=== PATIENT | female | born 1995 | race Hispanic/Latino ===

== ENCOUNTER 2022-03-28 13:05 | Observation (INO) | payer OTHER, SELFPAY ==
--- NOTE | 2022-03-28 16:03 | DI.US.S_ITS ---
PROCEDURE: US OB BIOPHYSICAL PROFILE INDICATIONS: 32 week fall OUTSIDE/PRIOR DATING DATA: TECHNIQUE: Real-time scanning was performed of the fetus, with image documentation and biometric measurements. Biophysical profile was also obtained. Endovaginal scanning: Not performed COMPARISON: None. FINDINGS: General: A single living intrauterine gestation is present. Presentation: Breech. Placenta: Placental position is anterior , without previa. There is a hypoechoic 4.0 x 4.0 x 2.0 region deep to the margins of the placenta in the region of pain described by the patient. Amniotic fluid index: 10.3 cm, normal range is 5-24 cm. Single deepest vertical pocket is 3.8 cm. heart rate: 133 beats per minute. Maternal cervical canal: 4.1 cm long. Normal lower limit is 2.5 cm. Biophysical profile: Tone: 2 points. Movement: 2 points. Respiration: 2 points. Largest pocket of fluid: 2 points. IMPRESSION: 1. Single live intrauterine gestation in breech position. 2. Hypoechoic fluid collection posterior to the margins of the placenta in the region of pain described by the patient. Differential considerations include focal region of placental abruption versus venous bauer. Close clinical and sonographic surveillance recommended. We strive to produce accurate, complete, and clear reports of imaging services. To assist us in improving patient care, this report was composed using standard report templates and voice recognition software. Therefore, it may contain abnormal punctuation, insertions and/or omissions. Occasional wrong-word or sound-alike substitutions may occur. Though we review the report and make efforts to correct it, we do recommend that the report be read carefully in proper context to recognize any text inaccuracies. Dictated by: Trisha Olmstead M.D. on 03/28/2022 at 16:49 Approved by: Trisha Olmstead M.D. on 03/28/2022 at 16:53
--- NOTE | 2022-03-28 16:58 | PM.OBTRLD ---
Visit Information Visit Information Date of evaluation: 03/28/22 Primary OB Provider: [facility] [place], [place] On-call OB Provider: Noah Sykes Reason for Evaluation: Yes other Comments/Additional reasons for admission: 26 yo JAZLYN 05/21/2022 followed at [facility] [place], presents to ED @ 32 weeks EGA w/ 1 month history of LUQ pain which seems to be steadily worsening. Transferred to [facility] for evaluation. Localized, non-radiating pain which feels like a bruise, constant. aggravated by certain movements during workouts, exquisitely sensitive when touched. No bleeding, no contractions, normal FM. Feel onto her knees recently at work recently and although she didn't impact her abdomen, the pain has worsened since. Seen at [facility] Triage 03/27/2022 with normal/negative findings and plans for close follow-up. Breech on most recent US. Non-smoker, no drug use, no HTN, no abdominal trauma, no COVID. Patient did not have any pain like this with her first and she is understandably concerned BT A+. Exam Const General: cooperative, healthy appearing and anxious Nutritional Appearance: average body habitus [facility] Head: normal to inspection, normocephalic and atraumatic Face and sinus: face symmetric Eyes General: appearance normal, both eyes and all related structures EOM: EOM intact bilaterally Neck Neck: normal visual inspection Resp Effort & Inspection: normal respiratory effort and able to speak in complete sentences GI Inspection: normal to inspection Palpation: soft, no hepatosplenomegaly, mass (Firm 33 cm FH, right side fundus more prominent) and tender (localized @ left cornua, duplicates pain ) Uterus Location (Fundal Height): 33 Extrem Right lower extremity: normal to inspection Objective Imaging OB U/S: Radiologist's impression: FINDINGS:? ? General:? A single living intrauterine gestation is present.? Presentation:? Breech.? Placenta:? Placental position is anterior , without previa.? There is a hypoechoic 4.0 x 4.0 x 2.0 region deep to the margins of the placenta in the region of pain described by the patient. Amniotic fluid index:? 10.3 cm, normal range is 5-24 cm.? Single deepest vertical pocket is 3.8 cm. heart rate:? 133 beats per minute.? Maternal cervical canal:? 4.1 cm long.? Normal lower limit is 2.5 cm.? ? Biophysical profile:? Tone:? 2 points. Movement:? 2 points.? Respiration:? 2 points.? Largest pocket of fluid:? 2 points.? ? ? IMPRESSION:? ? 1. Single live intrauterine gestation in breech position. ? 2. Hypoechoic fluid collection posterior to the margins of the placenta in the region of pain described by the patient.? Differential considerations include focal region of placental abruption versus venous bauer.? Close clinical and sonographic surveillance recommended.? Evaluation Evaluation Baseline heart rate: 13 Variability: Moderate (11-25) monitor accelerations: Present Monitor Decelerations: Absent Category of Tracing: Reactive Status: Category l Diagnosis, Plan/Disposition Final Diagnosis (1) : Status: Acute (2) Uterine pain: Status: Acute Plan/Disposition Plan: The patient's pain is localized, described consistently, and seems to be increasing in intensity. It's unclear whether or not the pain is being caused by the marginal placental abnormality noted on US but those findings are certainly concerning for a possible chronic marginal abruption. NST and BPP are reassuring insofar as current wellbeing but the US findings which closely correlate with patient's clinical symptoms therefore close Usurveillance of placental integrity is essentil going forward. Discussed case with Dr. Santosh DU and agrees close observation is essential. He will notify [facility] triage nurses who will contact the patient tomorrow and arrange close follow-up. Preacautionary symptoms reviewed including immediate presentation to nearest w/ onset of severe uterine pain and/or vaginal bleeding. Patient placed at no-work status until cleared by MANOLO DU. Patient's [facility] records to be forwarded to MANOLO DU. [place]
== END 2022-03-28 17:30 | disposition home or self-care (01) ==
PROVIDERS: Admitting Provider Obstetrics & Gynecology; Referring Provider Obstetrics & Gynecology; Visit Provider Obstetrics & Gynecology
DX: O26.893 Other specified pregnancy related conditions, third trimester (principal); R10.12 Left upper quadrant pain; Z3A.32 32 weeks gestation of pregnancy
CPT/HCPCS: 59025; 59050; 76815; 76819; G0378; G0379

== ENCOUNTER 2022-08-20 13:34 | Emergency (ER) | payer OTHER, SELFPAY ==
[2022-08-20 13:52] VITALS: BP 111/61; PULSE 55; RESP 16; TEMP 36.6; O2SAT 100
== END 2022-08-20 16:04 | disposition left against medical advice (07) ==
PROVIDERS: Emergency Provider Emergency Medicine
CPT/HCPCS: 99281

== ENCOUNTER 2022-08-21 13:02 | Emergency (ER) | payer OTHER, SELFPAY ==
[2022-08-21 13:16] VITALS: BP 109/59; PULSE 67; RESP 16; TEMP 36.7; O2SAT 100
[2022-08-21 14:34] LABS: Add Manual Diff / Slide Review NO; Basophils Absolute Auto 0 /uL (0-100); Basophils Percent Auto 0.4 % (0-2); Eosinophils Absolute Auto 100 /uL (0-450); Eosinophils Percent Auto 1.5 % (2-4); Hematocrit 34.5 % (36-46); Hemoglobin 11.5 g/dL (12.0-16.0); Lymphocytes Absolute Auto 2000 /uL (1100-4500); Lymphocytes Percent Auto 26.8 % (25-40); Mean Corpuscular HGB Conc 33.3 % (30-36); Mean Corpuscular Hemoglobin 25.9 PG (26-34); Mean Corpuscular Volume 77.7 fL (80-100); Monocytes Absolute Auto 500 /uL (0-900); Monocytes Percent Auto 6.5 % (3-14); Neutrophils Absolute Auto 4800 /uL (1500-7000); Neutrophils Percent Auto 64.8 % (50-75); Platelet Count 355 X10^3/uL (150-400); Red Blood Cell Count 4.44 X10^6/uL (4.0-5.2); Red Cell Distribution Width 14.7 % (11.6-14.8); White Blood Cell Count 7.5 X10^3/uL (4.5-11.0)
[2022-08-21 14:44] LABS: Alanine Aminotransferase 24 IU/L (<35); Albumin 4.3 g/dL (3.5-5.0); Albumin Globulin Ratio 1.3 (1.0-2.8); Alkaline Phosphatase 55 U/L (38-126); Aspartate Aminotransferase 35 IU/L (14-36); BUN Creatinine Ratio 16.7 (6-22); Bilirubin Total 0.6 mg/dL (0.2-1.3); Blood Urea Nitrogen 11 mg/dL (7-17); Calcium 8.9 mg/dL (8.4-10.2); Carbon Dioxide 23 mmol/L (22-32); Chloride 106 mmol/L (98-107); Estimated Glomerular Filt Rate > 60 mL/min (>60); Globulin 3.2 g/dL (1.7-4.1); Glucose 83 mg/dL (70-100); HEMOLYSIS < 15 (0-50); Lipase 74 U/L (23-300); Potassium 3.7 mmol/L (3.4-5.1); Sodium 140 mmol/L (137-145); Total Protein 7.5 g/dL (6.3-8.2)
[2022-08-21 15:06] VITALS: BP 99/56; PULSE 63; O2SAT 95
[2022-08-21 17:09] VITALS: O2SAT 99
[2022-08-21 17:10] VITALS: BP 110/55; PULSE 56; TEMP 36.5; O2SAT 100
--- NOTE | 2022-08-21 18:13 | DI.US.S_ITS ---
PROCEDURE: US PELVIC COMPLETE INDICATIONS: Pelvic pain TECHNIQUE: Real-time scanning was performed of the pelvic organs, with image documentation. Additional endovaginal scanning was necessary due to incomplete visualization of the adnexal and endometrial structures by transabdominal scanning. COMPARISON: None. FINDINGS: Uterus: Uterus is anteverted and measures 9.0 x 3.7 x 5.2 cm. Endometrium measures up to 0.4 cm in thickness. No endometrial fluid or mass identified. No definite increased internal vascularity within the endometrium on color Doppler interrogation. Ovaries: The right ovary measures 2.9 x 3.1 x 3.3 cm, with a calculated ovarian volume of 15.2 cc. The left ovary measures 1.1 x 2.4 x 1.2 cm, with a calculated ovarian volume of 1.6 cc. The ovaries have a normal sonographic appearance. Less than 12 follicles can be seen in each ovary. No adnexal masses. There is a predominantly anechoic right ovarian cyst measuring up to 2.6 x 2.3 x 2.3 cm. No internal vascularity on color Doppler interrogation. There is patent arterial flow within the ovaries. Other: No pathologic free abdominal or pelvic fluid. IMPRESSION: 1. No definite acute sonographic abnormality in the pelvis. 2. Right ovarian cyst likely represents a follicular cyst. 3. No definite evidence of retained products of conception. We strive to produce accurate, complete, and clear reports of imaging services. To assist us in improving patient care, this report was composed using standard report templates and voice recognition software. Therefore, it may contain abnormal punctuation, insertions and/or omissions. Occasional wrong-word or sound-alike substitutions may occur. Though we review the report and make efforts to correct it, we do recommend that the report be read carefully in proper context to recognize any text inaccuracies. Dictated by: Daren Ruiz M.D. on 08/21/2022 at 20:24 Approved by: Daren Ruiz M.D. on 08/21/2022 at 20:35
--- NOTE | 2022-08-21 18:16 | ED_ITS ---
HPI - Abdominal Pain <Brien Cho MD - Last Filed: 08/21/22 18:19> General Chief Complaint: Abdominal Pain Stated Complaint: abd pain 3 months ago Time Seen by Provider: 08/21/22 17:50 Mode of arrival: Family Vehicle History of Present Illness HPI narrative: Oralia is a healthy 26-year-old woman who gave via section in the middle of April. Everything went well with the surgery but since surgery she is noticed that she is had quite a bit of spotting and bloody flow. It did stop briefly for a few days but then resumed and he has been present for many weeks now. She has persistent abdominal discomfort and pain. Tylenol and ibuprofen do not give her much relief. She is had some nausea but no vomiting. She has no bowel or urinary tract symptoms at all. No constipation specifically. She is not had any previous abdominal surgeries other than the in April. She tried to talk to her gynecological assistant surgeon but they could not see her until this Saturday and the pain was to the point where she felt uncomfortable waiting until Saturday so she came in today. She has no flank tenderness. No fainting. No pr escription medications. Related Data Allergies Allergy/AdvReac Type Severity Reaction Status Date / Time No Known Drug Allergies Allergy Verified 08/21/22 13:20 Review of Systems <Brien Cho MD - Last Filed: 08/21/22 18:19> Review of Systems Narrative: Complete review of systems is negative other than as noted above. Patient History <Brien Cho MD - Last Filed: 08/21/22 18:19> Social History Smoking Status: Never smoker Smoking Status: Never smoker Substance Use Type: does not use Exam <Brien Cho MD - Last Filed: 08/21/22 18:19> Narrative Exam Narrative: GENERAL: Alert, cooperative and in no distress. HEAD: Atraumatic. Normocephalic. EYES: Sclera are clear without icterus. Extraocular movements are full. ENT: No rhinorrhea NECK: Supple. Full range of motion. CARDIOVASCULAR: Normal rate and rhythm without murmur gallop or rub. RESPIRATORY: Clear to auscultation. Breath sounds equal bilaterally. No wheezes, rales, or rhonchi. GASTROINTESTINAL: Abdomen is soft. There are no peritoneal signs or guarding. She does have diffuse tenderness. The tenderness is probably most notable in the right lower quadrant. But again no guarding or rebound EXTREMITIES: No edema, full range of motion. No obvious trauma. BACK: Normal inspection, no CVA tenderness. NEURO: Nonfocal examination, normal speech. SKIN: No rash or erythema of visible areas PSYCH: Normally oriented. Normal range of affect. Appropriate behavior Initial Vital Signs Initial Vital Signs: Vital Signs Temperature 98.1 F 08/21/22 13:16 Pulse Rate 67 08/21/22 13:16 Respiratory Rate 16 08/21/22 13:16 Blood Pressure 109/59 L 08/21/22 13:16 Pulse Oximetry 100 08/21/22 13:16 Oxygen Delivery Method 08/21/22 13:16 <Jennifer Prieto DO - Last Filed: 08/22/22 02:30> Initial Vital Signs Initial Vital Signs: Vital Signs Temperature 98.1 F 08/21/22 13:16 Pulse Rate 67 08/21/22 13:16 Respiratory Rate 16 08/21/22 13:16 Blood Pressure 109/59 L 08/21/22 13:16 Pulse Oximetry 100 08/21/22 13:16 Oxygen Delivery Method 08/21/22 13:16 Course <Brien Cho MD - Last Filed: 08/21/22 18:19> Orders Ordered: ED Orders 08/21/22 17:32 EKG-12 Lead Stat 08/21/22 18:13 US pelvic complete Stat Vital Signs Vital signs: Vital Signs - 8 hr 08/21/22 20:56 Pulse Rate 86 Respiratory Rate 16 Blood Pressure 126/84 Pulse Oximetry 98 Oxygen Delivery Method Room Air <Jennifer Prieto DO - Last Filed: 08/22/22 02:30> Orders Ordered: ED Orders 08/21/22 17:32 EKG-12 Lead Stat 08/21/22 18:13 US pelvic complete Stat Vital Signs Vital signs: Vital Signs - 8 hr 08/21/22 20:56 Pulse Rate 86 Respiratory Rate 16 Blood Pressure 126/84 Pulse Oximetry 98 Oxygen Delivery Method Room Air MDM - Abdominal Pain <Brien Cho MD - Last Filed: 08/21/22 18:19> Lab Data Result diagrams: 08/21/22 14:21 08/21/22 14:21 Labs: Lab Results 08/21/22 08/21/22 Range/Units 14:21 14:21 WBC 7.5 (4.5-11.0) X10^3/uL RBC 4.44 (4.0-5.2) X10^6/uL Hgb 11.5 L (12.0-16.0) g/dL Hct 34.5 L (36-46) % MCV 77.7 L (80-100) fL MCH 25.9 L (26-34) PG MCHC 33.3 (30-36) % RDW 14.7 (11.6-14.8) % Plt Count 355 (150-400) X10^3/uL Neut % (Auto) 64.8 (50-75) % Lymph % (Auto) 26.8 (25-40) % [place] % (Auto) 6.5 (3-14) % Eos % (Auto) 1.5 L (2-4) % Baso % (Auto) 0.4 (0-2) % Neut # (Auto) 4800 (1104-6259) /uL Lymph # (Auto) 2000 (0424-2751) /uL [place] # (Auto) 500 (0-900) /uL Eos # (Auto) 100 (0-450) /uL Baso # (Auto) 0 (0-100) /uL Sodium 140 (137-145) mmol/L Potassium 3.7 (3.4-5.1) mmol/L Chloride 106 (98-107) mmol/L Carbon Dioxide 23 (22-32) mmol/L BUN 11 (7-17) mg/dL Creatinine 0.66 (0.52-1.04) mg/dL Estimated GFR > 60 (>60) mL/min BUN/Creatinine Ratio 16.7 (6-22) Glucose 83 (70-100) mg/dL Calcium 8.9 (8.4-10.2) mg/dL Total Bilirubin 0.6 (0.2-1.3) mg/dL AST 35 (14-36) IU/L ALT 24 (<35) IU/L Alkaline Phosphatase 55 (38-126) U/L Total Protein 7.5 (6.3-8.2) g/dL Albumin 4.3 (3.5-5.0) g/dL Globulin 3.2 (1.7-4.1) g/dL Albumin/Globulin Ratio 1.3 (1.0-2.8) Lipase 74 (23-300) U/L Point of care testing: Point of Care Testing Test Results Negative Urine Dip Bedside Urine Glucose Negative Bedside Urine Bilirubin - Negative Bedside Urine Ketone - Negative Urine Specific [place] 1.010 Bedside Urine Occult Blood - Negative Bedside Urine pH 7.0 Bedside Urine Protein - Negative Bedside Urine Urobilinogen - Negative Bedside Urine Nitrite - Negative Bedside Urine Leukocytes - Negative Esterase MDM Narrative Medical decision making narrative: No guarding or rebound. I do not suspect peritonitis. It seems like a long time since her for her to have a complication but to be thorough will get pelvic ultrasound to confirm. Laboratory data is entirely reassuring. I recommend follow-up with her gynecologic surgeon later in the week assuming that her workup here is completely reassuring with ultrasound. <Jennifer Prieto, - Last Filed: 08/22/22 02:30> Lab Data Labs: Lab Results 08/21/22 08/21/22 Range/Units 14:21 14:21 WBC 7.5 (4.5-11.0) X10^3/uL RBC 4.44 (4.0-5.2) X10^6/uL Hgb 11.5 L (12.0-16.0) g/dL Hct 34.5 L (36-46) % MCV 77.7 L (80-100) fL MCH 25.9 L (26-34) PG MCHC 33.3 (30-36) % RDW 14.7 (11.6-14.8) % Plt Count 355 (150-400) X10^3/uL Neut % (Auto) 64.8 (50-75) % Lymph % (Auto) 26.8 (25-40) % [place] % (Auto) 6.5 (3-14) % Eos % (Auto) 1.5 L (2-4) % Baso % (Auto) 0.4 (0-2) % Neut # (Auto) 4800 (6100-1008) /uL Lymph # (Auto) 2000 (3407-5164) /uL [place] # (Auto) 500 (0-900) /uL Eos # (Auto) 100 (0-450) /uL Baso # (Auto) 0 (0-100) /uL Sodium 140 (137-145) mmol/L Potassium 3.7 (3.4-5.1) mmol/L Chloride 106 (98-107) mmol/L Carbon Dioxide 23 (22-32) mmol/L BUN 11 (7-17) mg/dL Creatinine 0.66 (0.52-1.04) mg/dL Estimated GFR > 60 (>60) mL/min BUN/Creatinine Ratio 16.7 (6-22) Glucose 83 (70-100) mg/dL Calcium 8.9 (8.4-10.2) mg/dL Total Bilirubin 0.6 (0.2-1.3) mg/dL AST 35 (14-36) IU/L ALT 24 (<35) IU/L Alkaline Phosphatase 55 (38-126) U/L Total Protein 7.5 (6.3-8.2) g/dL Albumin 4.3 (3.5-5.0) g/dL Globulin 3.2 (1.7-4.1) g/dL Albumin/Globulin Ratio 1.3 (1.0-2.8) Lipase 74 (23-300) U/L Point of care testing: Point of Care Testing Test Results Negative Urine Dip Bedside Urine Glucose Negative Bedside Urine Bilirubin - Negative Bedside Urine Ketone - Negative Urine Specific [place] 1.010 Bedside Urine Occult Blood - Negative Bedside Urine pH 7.0 Bedside Urine Protein - Negative Bedside Urine Urobilinogen - Negative Bedside Urine Nitrite - Negative Bedside Urine Leukocytes - Negative Esterase Imaging Data US - MAINTENANCE EQUIPMENT OPERATOR: Radiologist's Impression: Signed Patient: Pastora Sanchez MR#: [id number] : 1995 Acct:[id number] Age/Sex: 26 / F Date of Service: 08/21/22 Loc: ED Accession Number: [id number] ?? Procedure: US pelvic complete Ordering Provider: Brien Cho MD PROCEDURE:? US PELVIC COMPLETE ? INDICATIONS:? Pelvic pain ? TECHNIQUE:? Real-time scanning was performed of the pelvic organs, with image documentation.? Additional endovaginal scanning was necessary due to incomplete visualization of the adnexal and endometrial structures by transabdominal scanning.? ? COMPARISON:? None. ? FINDINGS:? ?? Uterus:? Uterus is anteverted and measures 9.0 x 3.7 x 5.2 cm.? Endometrium measures up to 0.4 cm in thickness.? No endometrial fluid or mass identified.? No definite increased internal vascularity within the endometrium on color Doppler interrogation.? ? Ovaries:? The right ovary measures 2.9 x 3.1 x 3.3 cm, with a calculated ovarian volume of 15.2 cc. The left ovary measures 1.1 x 2.4 x 1.2 cm, with a calculated ovarian volume of 1.6 cc. The ovaries have a normal sonographic appearance. Less than 12 follicles can be seen in each ovary.? No adnexal masses.? There is a predominantly anechoic right ovarian cyst measuring up to 2.6 x 2.3 x 2.3 cm.? No internal vascularity on color Doppler interrogation.? There is patent arterial flow within the ovaries.? ? Other:? No pathologic free abdominal or pelvic fluid. ? ? IMPRESSION:? ? 1. No definite acute sonographic abnormality in the pelvis. ? 2.? Right ovarian cyst likely represents a follicular cyst. ? 3. No definite evidence of retained products of conception. ? ? ? We strive to produce accurate, complete, and clear reports of imaging services. To assist us in improving patient care, this report was composed using standard report templates and voice recognition software. Therefore, it may contain abnormal punctuation, insertions and/or omissions. Occasional wrong-word or sound-alike substitutions may occur. Though we review the report and make efforts to correct it, we do r ecommend that the report be read carefully in proper context to recognize any text inaccuracies. ? ? Dictated by: Daren Ruiz M.D. on 08/21/2022 at 20:24 ? ? MDM Narrative Medical decision making narrative: No guarding or rebound. I do not suspect peritonitis. It seems like a long time since her for her to have a complication but to be thorough will get pelvic ultrasound to confirm. Laboratory data is entirely reassuring. I recommend follow-up with her gynecologic surgeon later in the week assuming that her workup here is completely reassuring with ultrasound. Conner: Patient signed out to me by For now. I have seen evaluated patient myself. Blood work is overall reassuring she has some very mild vague abdominal pain abdominal exam is fairly benign mildly tender is all left side. Ultrasound shows a very small right ovarian cyst unlikely to be causing her pain. She may require a CT is however not at this time. She seems to be moving around quite easily abdomen is certainly not acute. His at this time recommend outpatient follow-up and supportive care. Discharge Plan Departure Patient Disposition: Home Clinical Impression: Pelvic pain, Ovarian cyst Instructions: DI for Ovarian Cyst, DI for Abdominal Pain-Adult Activity Restrictions/Additional Instructions: No immediately dangerous cause for her abdominal pain is discovered today. Pelvic ultrasound is reassuring. Laboratory data is reassuring. Her vital signs are normal. I am sorry that your struggling with this difficult ongoing abdominal pain. I recommend that your next step would be to follow up with the gynecologic surgeon to discuss further investigation as indicated. You should return to the ER right away for fainting, high fever, severe pain making it difficult to eat or walk. For pain management recommend Tylenol 1000 mg taken together with ibuprofen 600 mg every 6 hours. Referrals: Miscellaneous,DoctorMD [Primary Care Provider] - Visit Report Forms: Patient Portal/API
[2022-08-21 20:56] VITALS: BP 126/84; PULSE 86; RESP 16; O2SAT 98
== END 2022-08-21 20:56 | disposition home or self-care (01) ==
PROVIDERS: Family Medicine Addiction Medicine; Emergency Provider Emergency Medicine
DX: R10.2 Pelvic and perineal pain (principal); N83.201 Unspecified ovarian cyst, right side
CPT/HCPCS: 36415; 76830; 76856; 80053; 81003; 81025; 83690; 85025; 93005; 93975; 99283; 99284

== ENCOUNTER 2024-07-30 12:34 | Emergency (ER) | payer OTHER, SELFPAY ==
[2024-07-30 12:37] VITALS: BP 106/59; PULSE 74; RESP 16; TEMP 36.8; O2SAT 99; BMI 24.7
--- NOTE | 2024-07-30 13:30 | ED.SOB ---
HPI - SOB/Dyspnea <Lin Hill PA-C - Last Filed: 07/30/24 16:40> General Chief Complaint: Shortness of Breath/Dyspnea Stated Complaint: SOB, chest px, fatigue Time Seen by Provider: 07/30/24 13:30 Source: patient Mode of arrival: Ambulatory History of Present Illness HPI Narrative: Patient is a pleasant 28-year-old female that presents to the emergency room department today with a sensation of chest pressure, unable to catch her breath, unable to take a deep breath, that has been ongoing for the last several days. However it has been episodic in nature until today where the sensation that she can not quite take a deep breath and can not quite express all of her breath has lasted throughout the day. Patient denies recent travel, recent antibiotics, no recent sick contacts. She has not been on an airplane, she also complains of some night sweats. No history of TB, healthy female no major medical problems except anxiety but she states this does not feel like her anxiety. Patient recently had an episode of syncope at the airport, followed up with her primary care doctor and was told that she had a vasovagal event and was not preferred to anyone be evaluated for the syncope. Currently at this time the patient states she just feels like she just can not quite get a deep breath. And she has discomfort and pain in her chest. No other physical complaints currently at this time. Related Data Allergies Allergy/AdvReac Type Severity Reaction Status Date / Time No Known Drug Allergies Allergy Verified 08/21/22 13:20 Review of Systems <Lin Hill PA-C - Last Filed: 07/30/24 16:40> Review of Systems Narrative: Negative except as above Cardiovascular Comments: Chest pain chest pressure. Respiratory Comments: Patient states she is unable to get a full breath, and get a full breath in and out. Musculoskeletal Comments: Patient states that she has chest pain, chest pressure. Patient History <Lin Hill PA-C - Last Filed: 07/30/24 16:40> Social History Smoking Status: Current every day smoker Smoking Status: Current every day smoker tobacco type: vaping Substance Use Type: does not use Exam <Lin Hill PA-C - Last Filed: 07/30/24 16:40> Initial Vital Signs Initial Vital Signs: Vital Signs Temperature 98.3 F 07/30/24 12:37 Pulse Rate 74 07/30/24 12:37 Respiratory Rate 16 07/30/24 12:37 Blood Pressure 106/59 L 07/30/24 12:37 Pulse Oximetry 99 07/30/24 12:37 Oxygen Delivery Method Room Air 07/30/24 12:37 Reviewed. The patient has no tachycardia, no tachypnea, she has not hypotensive, she has not tachycardic, she has not hypoxic. Const General: cooperative, healthy appearing, comfortable, well developed, well groomed, No acute distress, No in distress, No anxious, No combative, No diaphoretic, No disheveled, No frail appearing, No ill appearing, No intoxicated appearing, No lethargic and well hydrated Nutritional Appearance: average body habitus, well nourished and thin Limitations: mental status not altered and no physical limitations HENMT Head: normal to inspection and normocephalic Eyes General: Yes appearance normal, both eyes and all related structures Eyelids: eyelids normal Pupils: PERRL EOM: EOM intact bilaterally Chest Other: Patient is in out of chest movement is normal. She does not appear to be struggling. There is no use of accessory muscles. Resp Effort & Inspection: normal respiratory effort, able to speak in complete sentences, normal respiratory pattern, no audible wheezes, no cough, respiratory effort not decreased, no grunting, not labored, no nasal flaring, no pursed lip breathing, no respiratory distress, no retractions, no segmental paradox chest wall movement, no stridor, no tripod positioning, no use of accessory muscles, No prolonged expiratory phase and symmetric chest movement Auscultation: clear to auscultation bilaterally, breath sounds present, no bronchial breath sounds, no bronchovesicular breath sounds, no crackles, lung sounds not diminished, no rales, no rhonchi, no wheezes, no rubs and no vesicular sounds Tactile Fremitus: tactile fremitus absent Cardio Rate: bradycardic Rhythm: regular rhythm Heart Sounds: S1 normal, S2 normal, no click, no gallops, no murmurs and no rubs Pulses: radial pulses present and normal peripheral pulses Skin General: dry skin and warm Neuro General: patient alert, patient awake, patient oriented x3, oriented and gait normal Cranial Nerves: CN's II-XI intact bilaterally, PERRL and hearing normal Cognition: normal cognition Speech: speech normal Gait: normal gait Extrem Other: Range of motion, strength, pulses, cap refill preserved in the upper and lower extremities. Psych Other: Patient's appearance, mental status, speech, movement, mood, affect, attitude, thought process, thought content, judgment are all within normal limits. Patient is wondering if this could be her anxiety. I have tried to explain to her that currently anxiety is different for every person. That is why anxiety, psych issues, mental health is difficult to treat because no to people other exactly the same, no treatment plan is the same people do not present the same we have not talked about any mental health issues here in the emergency room department. If she would like to talk about mental health issues I am more than willing to listen currently however she has not discuss with me that she would like to talk about any mental health issues. <Jabier Duque MD - Last Filed: 07/30/24 22:03> Initial Vital Signs Initial Vital Signs: Vital Signs Temperature 98.3 F 07/30/24 12:37 Pulse Rate 74 07/30/24 12:37 Respiratory Rate 16 07/30/24 12:37 Blood Pressure 106/59 L 07/30/24 12:37 Pulse Oximetry 99 07/30/24 12:37 Oxygen Delivery Method Room Air 07/30/24 12:37 Scores <Lin Hill PA-C - Last Filed: 07/30/24 16:40> GCS Citation: 15 Course <Lin Hill PA-C - Last Filed: 07/30/24 16:40> Orders Ordered: ED Orders 07/30/24 13:32 XR chest 2V Urgent EKG-12 Lead Urgent 07/30/24 13:55 B12 [Vitamin B12] Routine CBC Auto Diff [Complete Blood Count AUTO DIFF] Urgent CMP [Comprehensive Metabolic Panel] Urgent Folate Stat Hemoglobin A1C% w Est Avg Glu Stat Iron Stat Troponin & CK Cardiac Panel Urgent Vitamin D 25 Hydroxy (D3) Stat Discontinued Medications Albuterol/Ipratropium (Albuterol/Ipratropium 3 Ml Ampul) 3 ml INH NOW ONE Stop: 07/30/24 15:34 Last Admin: 07/30/24 15:41 Dose: 3 ml Documented By: KATJA Reevaluation(s) Reevaluation #1: Patient had a breathing treatment, she did not get any improvement from the breathing treatment. Vital Signs Vital signs: Vital Signs - 8 hr 07/30/24 15:45 07/30/24 16:27 Pulse Rate 58 L 58 L Respiratory Rate 18 14 Blood Pressure 123/67 Pulse Oximetry 99 100 Oxygen Delivery Method Room Air Room Air Reviewed <Jabier Duque MD - Last Filed: 07/30/24 22:03> Orders Ordered: ED Orders 07/30/24 13:32 XR chest 2V Urgent EKG-12 Lead Urgent 07/30/24 13:55 B12 [Vitamin B12] Routine CBC Auto Diff [Complete Blood Count AUTO DIFF] Urgent CMP [Comprehensive Metabolic Panel] Urgent Folate Stat Hemoglobin A1C% w Est Avg Glu Stat Iron Stat Troponin & CK Cardiac Panel Urgent Vitamin D 25 Hydroxy (D3) Stat Discontinued Medications Albuterol/Ipratropium (Albuterol/Ipratropium 3 Ml Ampul) 3 ml INH NOW ONE Stop: 07/30/24 15:34 Last Admin: 07/30/24 15:41 Dose: 3 ml Documented By: KATJA Vital Signs Vital signs: Vital Signs - 8 hr 07/30/24 15:45 07/30/24 16:27 Pulse Rate 58 L 58 L Respiratory Rate 18 14 Blood Pressure 123/67 Pulse Oximetry 99 100 Oxygen Delivery Method Room Air Room Air MDM - SOB/Dyspnea <Lin Hill PA-C - Last Filed: 07/30/24 16:40> Lab Data 07/30/24 13:55 07/30/24 13:55 Labs: Lab Results 07/30/24 Range/Units 13:55 WBC 6.3 (4.5-11.0) X10^3/uL RBC 4.42 (4.0-5.2) X10^6/uL Hgb 12.2 (12.0-16.0) g/dL Hct 36.8 (36-46) % MCV 83.3 (80-100) fL MCH 27.7 (26-34) PG MCHC 33.3 (30-36) % RDW 13.0 (11.6-14.8) % Plt Count 363 (150-400) X10^3/uL Neut % (Auto) 65.6 (50-75) % Lymph % (Auto) 27.9 (25-40) % [place] % (Auto) 5.0 (3-14) % Eos % (Auto) 1.1 L (2-4) % Baso % (Auto) 0.4 (0-2) % Neut # (Auto) 4100 (2083-3295) /uL Lymph # (Auto) 1700 (5866-1499) /uL [place] # (Auto) 300 (0-900) /uL Eos # (Auto) 100 (0-450) /uL Baso # (Auto) 0 (0-100) /uL Sodium 137 (137-145) mmol/L Potassium 4.0 (3.4-5.1) mmol/L Chloride 106 (98-107) mmol/L Carbon Dioxide 22 (22-32) mmol/L BUN 9 (7-17) mg/dL Creatinine 0.63 (0.52-1.04) mg/dL Estimated GFR > 60 (>60) mL/min BUN/Creatinine Ratio 14.3 (6-22) Glucose 86 (70-100) mg/dL Hemoglobin A1c 4.7 (4.0-6.0) % Calcium 9.4 (8.4-10.2) mg/dL Iron 140 (37-170) ug/dL Total Bilirubin 1.8 H (0.2-1.3) mg/dL AST 20 (14-36) IU/L ALT 12 (<35) IU/L Alkaline Phosphatase 46 (38-126) U/L Total Creatine Kinase 78 (30-135) U/L Troponin I < 0.012 (0.01-0.034) ng/mL Total Protein 7.6 (6.3-8.2) g/dL Albumin 4.7 (3.5-5.0) g/dL Globulin 2.9 (1.7-4.1) g/dL Albumin/Globulin Ratio 1.6 (1.0-2.8) Vitamin B12 723 (239-931) pg/mL 25-OH Vitamin D Total 35.8 (30.0-100.0) ng/mL Folate 12.8 (2.76-20.0) ng/mL Imaging Data Chest x-ray: Radiologist's Impression: [address] [address] XRay Report Signed Patient: Pastora Sanchez MR#: [id number] : 1995 Acct:[id number] Age/Sex: 28 / F Date of Service: 07/30/24 Loc: ED Accession Number: [id number] Procedure: XR chest 2V Ordering Provider: Lin Hill PA-C PROCEDURE: XR CHEST 2V INDICATIONS: Short of breath TECHNIQUE: 2 views of the chest were acquired. COMPARISON: None. FINDINGS: Surgical changes and devices: None. Lungs and pleura: Lungs are clear. No pleural effusions or pneumothorax. Mediastinum: Mediastinal contours are normal. Heart size is normal. Bones and chest wall: No suspicious bony abnormalities. Soft tissues appear unremarkable. IMPRESSION: No acute pulmonary process. Dictated by: Usha Harding M.D. on 07/30/2024 at 14:14 Approved by: Usha Harding M.D. on 07/30/2024 at 14:18 ECG Data Interpretation: Sinus bradycardia Ventricular rate 55 beats per minute WV interval 154 milliseconds QRS interval 84 milliseconds QT/QTC 418/[address] elevation No ST depression No signs of acute infarct Otherwise normal EKG except for sinus bradycardia. MDM Narrative Medical decision making narrative: Patient is a pleasant 28-year-old female brought to the emergency room department today by her . We have complaints of multiple days of episodic sensation of not being able to get enough air in enough air out. However, today the sensation has been ongoing, and has not gone away. She feels as if she is short of breath even at rest, she is having difficulty getting enough air in feeling as if her ribcage is expanding and then feeling as if she is getting enough air out. Chest x-ray negative for any cardiac abnormalities or pulmonary abnormalities. Patient had a breathing treatment she states that the DuoNeb did not make her feel any different did not changes sensation that she currently has. She had a complex laboratory workup here that was negative for any substantial acute findings. Cardiac enzymes were normal CBC was normal patient is not anemic, she does not have an elevated white count. Hemoglobin A1c was normal Vitamin-D normal Vitamin B12 normal Folate normal Iron normal CMP normal except for mild elevated total bili at 1.8 Patient concerned that perhaps it is anxiety which could be however patient has not discuss any issues associated with mental health are talked about mental health issues. My understanding is she had a syncopal episode about a [place] ago at the airport by her primary care doctor stated that they felt it was a vasovagal event due to dehydration she was not referred to be seen or evaluated for the syncopal episode. I suggested that the patient discuss with her primary care doctor about being referred to pulmonary for pulmonary workup if she continues to have issues. The patient is not tachycardic, she has not tachypneic, she has not hypoxic, she does not appear lethargic, she just not appear toxic, she does not appear ill. She has not struggling to breathe. She is speaking in full sentences. She has not using any accessory muscles. Her EKG is not indicative of any heart strain. Low suspicion for pulmonary embolism. She has not currently taking control pills. She does vape but does not use any recreational cannabis, and her vaping history is very episodic in nature. She has not changed anything in her vaping usage. She has not changed cartilages, she has not changed where she purchases her vaping materials from. However, again her vaping history is very sporadic it has not something that she does not a daily basis, low suspicion again for pulmonary embolism. I have reviewed all the findings with the patient. I have encouraged her to come back if she continues to have issues or problems for further examination. But I have encouraged her to follow up with her primary care doctor. Differential diagnosis; dyspnea, shortness of breath, anxiety, intrathoracic obstructing mass, tumor, bronchial obstruction, asthma, congestive heart failure, obstructive airway disease, restrictive airway disease, pulmonary embolism, underlying cardiac disease, <Jabier Duque MD - Last Filed: 07/30/24 22:03> Lab Data Labs: Lab Results 07/30/24 Range/Units 13:55 WBC 6.3 (4.5-11.0) X10^3/uL RBC 4.42 (4.0-5.2) X10^6/uL Hgb 12.2 (12.0-16.0) g/dL Hct 36.8 (36-46) % MCV 83.3 (80-100) fL MCH 27.7 (26-34) PG MCHC 33.3 (30-36) % RDW 13.0 (11.6-14.8) % Plt Count 363 (150-400) X10^3/uL Neut % (Auto) 65.6 (50-75) % Lymph % (Auto) 27.9 (25-40) % [place] % (Auto) 5.0 (3-14) % Eos % (Auto) 1.1 L (2-4) % Baso % (Auto) 0.4 (0-2) % Neut # (Auto) 4100 (2888-9629) /uL Lymph # (Auto) 1700 (4009-7987) /uL [place] # (Auto) 300 (0-900) /uL Eos # (Auto) 100 (0-450) /uL Baso # (Auto) 0 (0-100) /uL Sodium 137 (137-145) mmol/L Potassium 4.0 (3.4-5.1) mmol/L Chloride 106 (98-107) mmol/L Carbon Dioxide 22 (22-32) mmol/L BUN 9 (7-17) mg/dL Creatinine 0.63 (0.52-1.04) mg/dL Estimated GFR > 60 (>60) mL/min BUN/Creatinine Ratio 14.3 (6-22) Glucose 86 (70-100) mg/dL Hemoglobin A1c 4.7 (4.0-6.0) % Calcium 9.4 (8.4-10.2) mg/dL Iron 140 (37-170) ug/dL Total Bilirubin 1.8 H (0.2-1.3) mg/dL AST 20 (14-36) IU/L ALT 12 (<35) IU/L Alkaline Phosphatase 46 (38-126) U/L Total Creatine Kinase 78 (30-135) U/L Troponin I < 0.012 (0.01-0.034) ng/mL Total Protein 7.6 (6.3-8.2) g/dL Albumin 4.7 (3.5-5.0) g/dL Globulin 2.9 (1.7-4.1) g/dL Albumin/Globulin Ratio 1.6 (1.0-2.8) Vitamin B12 723 (239-931) pg/mL 25-OH Vitamin D Total 35.8 (30.0-100.0) ng/mL Folate 12.8 (2.76-20.0) ng/mL Discharge Plan Departure Patient Disposition: Home Clinical Impression: Dyspnea Qualifiers: Dyspnea type: unspecified Qualified Code(s): R06.00 - Dyspnea, unspecified Activity Restrictions/Additional Instructions: Consider reaching out to your primary care doctor for referral to pulmonology for further evaluation, consider reaching out to your doctor to discuss evaluation for anxiety. If he continues to have issues or problems or things are not improving consider cutting back to the emergency department for further evaluation or care. Your workup here in the emergency department has been completely normal which I think is reassuring on a lot of bases. Referrals: ProviderTaran [Primary Care Provider] - Stand Alone Forms: Patient Portal/API ED Sign-out <Jabier Duque MD - Last Filed: 07/30/24 22:03> [facility]: I was immediately available in the department for consultation. This documentation has been reviewed and I agree with assessment and plan. Supervised by Jabier Duque MD
--- NOTE | 2024-07-30 13:32 | EKG_ITS ---
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
[2024-07-30 14:10] LABS: Add Manual Diff / Slide Review NO; Basophils Absolute Auto 0 /uL (0-100); Basophils Percent Auto 0.4 % (0-2); Eosinophils Absolute Auto 100 /uL (0-450); Eosinophils Percent Auto 1.1 % (2-4); Hematocrit 36.8 % (36-46); Hemoglobin 12.2 g/dL (12.0-16.0); Lymphocytes Absolute Auto 1700 /uL (1100-4500); Lymphocytes Percent Auto 27.9 % (25-40); Mean Corpuscular HGB Conc 33.3 % (30-36); Mean Corpuscular Hemoglobin 27.7 PG (26-34); Mean Corpuscular Volume 83.3 fL (80-100); Monocytes Absolute Auto 300 /uL (0-900); Neutrophils Absolute Auto 4100 /uL (1500-7000); Neutrophils Percent Auto 65.6 % (50-75); Platelet Count 363 X10^3/uL (150-400); Red Blood Cell Count 4.42 X10^6/uL (4.0-5.2); White Blood Cell Count 6.3 X10^3/uL (4.5-11.0)
[2024-07-30 14:26] LABS: Alanine Aminotransferase 12 IU/L (<35); Albumin 4.7 g/dL (3.5-5.0); Albumin Globulin Ratio 1.6 (1.0-2.8); Alkaline Phosphatase 46 U/L (38-126); Aspartate Aminotransferase 20 IU/L (14-36); BUN Creatinine Ratio 14.3 (6-22); Bilirubin Total 1.8 mg/dL (0.2-1.3); Blood Urea Nitrogen 9 mg/dL (7-17); Calcium 9.4 mg/dL (8.4-10.2); Carbon Dioxide 22 mmol/L (22-32); Chloride 106 mmol/L (98-107); Creatine Kinase 78 U/L (30-135); Estimated Glomerular Filt Rate > 60 mL/min (>60); Globulin 2.9 g/dL (1.7-4.1); Glucose 86 mg/dL (70-100); HEMOLYSIS < 15 (0-50); Sodium 137 mmol/L (137-145); Total Protein 7.6 g/dL (6.3-8.2)
[2024-07-30 14:37] LABS: Troponin I < 0.012 ng/mL (0.01-0.034)
[2024-07-30 14:38] LABS: Iron 140 ug/dL (37-170)
[2024-07-30 14:43] LABS: Hemoglobin A1C% w Est Avg Glu 4.7 % (4.0-6.0)
[2024-07-30 14:57] LABS: Vitamin D 25 Hydroxy (D3) 35.8 ng/mL (30.0-100.0)
[2024-07-30 15:20] LABS: Vitamin B12 723 pg/mL (239-931)
[2024-07-30] MEDS: ALBUTEROL/IPRATROPIUM 3 ML AMPUL INH (15:41)
[2024-07-30 15:45] VITALS: PULSE 58; RESP 18; O2SAT 99
[2024-07-30 15:45] LABS: Folate 12.8 ng/mL (2.76-20.0)
[2024-07-30 16:27] VITALS: BP 123/67; PULSE 58; RESP 14; O2SAT 100
== END 2024-07-30 16:28 | disposition home or self-care (01) ==
PROVIDERS: Emergency Provider Physician Assistant
DX: R06.00 Dyspnea, unspecified (principal); R00.1 Bradycardia, unspecified
CPT/HCPCS: 36415; 71046; 80053; 82306; 82550; 82607; 82746; 83036; 83540; 84484; 85025; 93005; 93010; 94640; 99283; 99284

== ENCOUNTER 2024-11-29 10:07 | Emergency (ER) | payer OTHER, SELFPAY ==
[2024-11-29 10:13] VITALS: BP 110/58; PULSE 106; RESP 16; TEMP 36.9; O2SAT 98; BMI 23.9
--- NOTE | 2024-11-29 10:22 | DI.RAD.S_ITS ---
PROCEDURE: XR CHEST 2V INDICATIONS: recent pnuemonia/still having a cough TECHNIQUE: 2 views of the chest were acquired. COMPARISON: [facility], CR, XR CHEST 2V, 07/30/2024, 13:52. FINDINGS: Surgical changes and devices: None. Lungs and pleura: Lungs are clear. No pleural effusions or pneumothorax. Mediastinum: Mediastinal contours are normal. Heart size is normal. Bones and chest wall: No suspicious bony abnormalities. Soft tissues appear unremarkable. IMPRESSION: No acute cardiopulmonary abnormality is seen. Dictated by: Joel Schwartz M.D. on 11/29/2024 at 10:03 Approved by: Joel Schwartz M.D. on 11/29/2024 at 10:04
--- NOTE | 2024-11-29 11:43 | PC.NURSE ---
Pt reports feeling sick for weeks. States she has not gotten better. States she was seen at approx 1-2 weeks ago where they dx w/ pneumonia and prescribed her antibiotics. Pt states she has not gotten better due to her cough not improving. Pt states she did not get a xray at . Pt states she has vomited bc she has coughed so much. Denies nausea, denies diarrhea, denies fevers. Denies any other pains; just states she wishes her cough would get better. Lung sounds clear and equal bilaterally anteriorly and posteriorly.
--- NOTE | 2024-11-29 12:35 | EKG_ITS ---
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
--- NOTE | 2024-11-29 12:36 | ED_ITS ---
HPI - URI/Sore Throat <Mayelin Trinidad PA-C - Last Filed: 11/29/24 15:51> General Chief Complaint: Upper Respiratory Symptoms Stated Complaint: sick x1 month/poss pneumonia/cough Time Seen by Provider: 11/29/24 11:01 Source: patient Mode of arrival: Ambulatory History of Present Illness HPI Narrative: Ms. Brennen Vega is a pleasant 29-year-old female with no reported past medical history who presents to the emergency department for upper respiratory symptoms x1 month. Patient states about 1 month ago she was sick with a cough that started to get better after about 2 weeks however it then started to get worse again and she had a fever. About 1 week ago she reports that she went to urgent care and was treated with what she thought was antibiotics, completed 2 days ago, she was feeling better until yesterday. However after discussion with the patient we realized that she was not on antibiotics but was on benzonatate cough medicine. States that she last had a fever about 1-2 weeks ago but she has had persistent painful dry cough causing chest pain with some residual chest pain in her upper chest which she attributes to sore muscles. Mild sore throat. Denies abdominal pain, nausea, vomiting, diarrhea, dysuria, concern for . She does not feel short of breath, no dyspnea on exertion, no lower extremity swelling or pain, no hormone use, no history of VTE. She does vape daily. Related Data Previous Rx's Medication Instructions Recorded benzonatate 200 mg capsule 200 mg PO BID-TID PRN cough #30 11/29/24 caps Allergies Allergy/AdvReac Type Severity Reaction Status Date / Time No Known Drug Allergies Allergy Verified 08/21/22 13:20 Review of Systems <Mayelin Trinidad PA-C - Last Filed: 11/29/24 15:51> Review of Systems ROS Unobtainable: All systems reviewed & are unremarkable except as noted in HPI and below Patient History <Mayelin Trinidad PA-C - Last Filed: 11/29/24 15:51> Social History Smoking Status: Current every day smoker Smoking Status: Current every day smoker tobacco type: vaping Exam <Mayelin Trinidad PA-C - Last Filed: 11/29/24 15:51> Narrative Exam Narrative: GENERAL: 29 year old patient appears stated age. Well-developed patient, in no acute distress. HEAD: Atraumatic. Normocephalic. EYES: Extraocular motions intact. No scleral icterus. No injection or drainage. ENT: Nose without bleeding, purulent drainage. Throat without erythema, tonsillar hypertrophy or exudate. Airway patent. NECK: Trachea midline. Cervical ROM intact. CARDIOVASCULAR: Increased rate and regular rhythm. RESPIRATORY: ?Nonlabored respirations. ?Speaking in clear, full sentences. ?Frequent dry cough. Clear to auscultation. Breath sounds equal bilaterally. No wheezes, rales, or rhonchi. ? EXTREMITIES: No edema or joint tenderness. BACK: Nontender without deformity or crepitance. No flank tenderness. NEURO: AOx3. ?Clear speech. ?Moves all 4 extremities appropriately. SKIN: No rash or erythema of visible areas Initial Vital Signs Initial Vital Signs: Vital Signs Temperature 98.4 F 11/29/24 10:13 Pulse Rate 106 H 11/29/24 10:13 Respiratory Rate 16 11/29/24 10:13 Blood Pressure 110/58 L 11/29/24 10:13 Pulse Oximetry 98 11/29/24 10:13 Oxygen Delivery Method Room Air 11/29/24 10:13 <Jabier Duque MD - Last Filed: 11/29/24 20:56> Initial Vital Signs Initial Vital Signs: Vital Signs Temperature 98.4 F 11/29/24 10:13 Pulse Rate 106 H 11/29/24 10:13 Respiratory Rate 16 11/29/24 10:13 Blood Pressure 110/58 L 11/29/24 10:13 Pulse Oximetry 98 11/29/24 10:13 Oxygen Delivery Method Room Air 11/29/24 10:13 Scores <Mayelin Trinidad PA-C - Last Filed: 11/29/24 15:51> HEART Score Heart Score history: Slightly Suspicious Heart Score EKG: Normal Heart Score Age: < 45 years old Heart Score risk factors: No known risk factors Heart Score troponin: < or = to normal limit Heart Score Total: 0 <Jabier Duque MD - Last Filed: 11/29/24 20:56> HEART Score Heart Score Total: 0 Course <Mayelin Trinidad PA-C - Last Filed: 11/29/24 15:51> Orders Ordered: ED Orders 11/29/24 12:35 EKG-12 Lead Stat 11/29/24 13:05 Complete Blood Count AUTO DIFF Stat Comprehensive Metabolic Panel Stat Covid-19 + FLU A/B + RSV - PCR Stat Troponin & CK Cardiac Panel Stat Discontinued Medications Acetaminophen (Acetaminophen 325 Mg Tablet) 1,000 mg PO NOW ONE Stop: 11/29/24 12:37 Last Admin: 11/29/24 12:49 Dose: Not Given Documented By: JAKE Acetaminophen (Acetaminophen 325 Mg Tablet) 975 mg PO NOW ONE Stop: 11/29/24 12:50 Last Admin: 11/29/24 12:53 Dose: 975 mg Documented By: JAKE Aspirin (Aspirin 81 Mg Chew Tab) 324 mg PO NOW ONE Stop: 11/29/24 12:36 Last Admin: 11/29/24 12:54 Dose: 324 mg Documented By: JAKE Benzonatate (Benzonatate 100 Mg Capsule) 200 mg PO NOW ONE Stop: 11/29/24 12:38 Last Admin: 11/29/24 12:53 Dose: 200 mg Documented By: JAKE Sodium Chloride (Normal Saline 0.9%) 1,000 mls @ 1,000 mls/hr IV BOLUS ONE Stop: 11/29/24 13:34 Last Infusion: 11/29/24 14:16 Dose: Infused Documented By: Admin: 11/29/24 12:56 Dose: 1,000 mls/hr Documented By: JAKE Sodium Chloride (Normal Saline 0.9%) 1,000 mls @ 150 mls/hr IV CONT SANTOSH Last Admin: 11/29/24 12:49 Dose: Not Given Documented By: JAKE Vital Signs Vital signs: Vital Signs - 8 hr 11/29/24 15:29 Temperature 98.1 F Pulse Rate 70 Respiratory Rate 16 Blood Pressure 103/67 Pulse Oximetry 99 Oxygen Delivery Method Room Air <Jabier Duque MD - Last Filed: 11/29/24 20:56> Orders Ordered: ED Orders 11/29/24 12:35 EKG-12 Lead Stat 11/29/24 13:05 Complete Blood Count AUTO DIFF Stat Comprehensive Metabolic Panel Stat Covid-19 + FLU A/B + RSV - PCR Stat Troponin & CK Cardiac Panel Stat Discontinued Medications Acetaminophen (Acetaminophen 325 Mg Tablet) 1,000 mg PO NOW ONE Stop: 11/29/24 12:37 Last Admin: 11/29/24 12:49 Dose: Not Given Documented By: JAKE Acetaminophen (Acetaminophen 325 Mg Tablet) 975 mg PO NOW ONE Stop: 11/29/24 12:50 Last Admin: 11/29/24 12:53 Dose: 975 mg Documented By: JAKE Aspirin (Aspirin 81 Mg Chew Tab) 324 mg PO NOW ONE Stop: 11/29/24 12:36 Last Admin: 11/29/24 12:54 Dose: 324 mg Documented By: JAKE Benzonatate (Benzonatate 100 Mg Capsule) 200 mg PO NOW ONE Stop: 11/29/24 12:38 Last Admin: 11/29/24 12:53 Dose: 200 mg Documented By: JAKE Sodium Chloride (Normal Saline 0.9%) 1,000 mls @ 1,000 mls/hr IV BOLUS ONE Stop: 11/29/24 13:34 Last Infusion: 11/29/24 14:16 Dose: Infused Documented By: Admin: 11/29/24 12:56 Dose: 1,000 mls/hr Documented By: JAKE Sodium Chloride (Normal Saline 0.9%) 1,000 mls @ 150 mls/hr IV CONT SANTOSH Last Admin: 11/29/24 12:49 Dose: Not Given Documented By: JAKE Vital Signs Vital signs: Vital Signs - 8 hr 11/29/24 15:29 Temperature 98.1 F Pulse Rate 70 Respiratory Rate 16 Blood Pressure 103/67 Pulse Oximetry 99 Oxygen Delivery Method Room Air MDM - URI/Sore Throat <Mayelin Trinidad PA-C - Last Filed: 11/29/24 15:51> Medical Records Attestation: I reviewed the patient's medical records. Lab Data 11/29/24 13:05 11/29/24 13:05 Labs: Lab Results 11/29/24 Range/Units 13:05 WBC 8.7 (4.5-11.0) X10^3/uL RBC 4.46 (4.0-5.2) X10^6/uL Hgb 12.4 (12.0-16.0) g/dL Hct 37.3 (36-46) % MCV 83.5 (80-100) fL MCH 27.7 (26-34) PG MCHC 33.2 (30-36) % RDW 13.7 (11.6-14.8) % Plt Count 354 (150-400) X10^3/uL Neut % (Auto) 76.0 H (50-75) % Lymph % (Auto) 12.0 L (25-40) % [place] % (Auto) 8.9 (3-14) % Eos % (Auto) 2.4 (2-4) % Baso % (Auto) 0.7 (0-2) % Neut # (Auto) 6600 (5953-0013) /uL Lymph # (Auto) 1000 L (6327-3763) /uL [place] # (Auto) 800 (0-900) /uL Eos # (Auto) 200 (0-450) /uL Baso # (Auto) 100 (0-100) /uL Sodium 137 (137-145) mmol/L Potassium 3.9 (3.4-5.1) mmol/L Chloride 104 (98-107) mmol/L Carbon Dioxide 25 (22-32) mmol/L BUN 7 (7-17) mg/dL Creatinine 0.57 (0.52-1.04) mg/dL Estimated GFR > 60 (>60) mL/min BUN/Creatinine Ratio 12.3 (6-22) Glucose 87 (70-100) mg/dL Calcium 9.1 (8.4-10.2) mg/dL Total Bilirubin 0.8 (0.2-1.3) mg/dL AST 25 (14-36) IU/L ALT 16 (<35) IU/L Alkaline Phosphatase 54 (38-126) U/L Total Creatine Kinase 74 (30-135) U/L Troponin I < 0.012 (0.01-0.034) ng/mL Total Protein 7.6 (6.3-8.2) g/dL Albumin 4.6 (3.5-5.0) g/dL Globulin 3.0 (1.7-4.1) g/dL Albumin/Globulin Ratio 1.5 (1.0-2.8) SARS-CoV-2 (PCR) Negative (Negative) Influenza A (RT-PCR) Flu a positive H (NEGATIVE) Influenza B (RT-PCR) Flu b negative (NEGATIVE) RSV (PCR) Positive A (Negative) Imaging Data Chest x-ray: Radiologist's Impression: PROCEDURE: XR CHEST 2V INDICATIONS: recent pnuemonia/still having a cough TECHNIQUE: 2 views of the chest were acquired. COMPARISON: [facility], CR, XR CHEST 2V, 07/30/2024, 13:52. FINDINGS: Surgical changes and devices: None. Lungs and pleura: Lungs are clear. No pleural effusions or pneumothorax. Mediastinum: Mediastinal contours are normal. Heart size is normal. Bones and chest wall: No suspicious bony abnormalities. Soft tissues appear unremarkable. IMPRESSION: No acute cardiopulmonary abnormality is seen. MDM Narrative Medical decision making narrative: 29-year-old female with no reported past medical history who presents to the emergency department for upper respiratory symptoms x1 month. Differential diagnosis includes but is not limited to viral URI, bronchitis, pneumonia, myocarditis, costochondritis, etc. On exam patient is in no acute distress, nontoxic appearing, vital signs appropriate except for mildly elevated heart rate of 106. Patient is not feeling short of breath, is not hypoxic, has no clinical signs of DVT, symptoms most consistent with an upper respiratory infection, low suspicion for PE at this time. Over the last month she has had a cough which got better with benzonatate but then returned after discontinuation of the medication. She has not had a fever and about 1-2 weeks. Chest x-ray obtained in triage was negative for pneumonia. We will proceed with viral swab, treat symptoms with Tylenol, IV fluids, benzonatate, check baseline labs including cardiac enzymes. Chest x-ray negative for acute cardiopulmonary abnormality. ECG normal sinus rhythm with a rate of 89 beats per minute. Labs reveal normal WBC count of 8.7, hemoglobin 12.4 hematocrit 37.3. Normal electrolytes and renal function. Patient feels extremely improved after ED treatment. She tested positive for both influenza a and RSV, she is out of the window for Tamiflu. Her symptoms are consistent with a viral upper respiratory infection. Prescribed benzonatate and clarified that this is a cough medication and not an antibiotic. Recommended supportive care, rest, hydration, ibuprofen/Tylenol. ED return precautions discussed. Patient verbalized understanding of all information is agreeable to the plan. VS WNL. She is stable for discharge home. <Jabier Duque MD - Last Filed: 11/29/24 20:56> Lab Data Labs: Lab Results 11/29/24 Range/Units 13:05 WBC 8.7 (4.5-11.0) X10^3/uL RBC 4.46 (4.0-5.2) X10^6/uL Hgb 12.4 (12.0-16.0) g/dL Hct 37.3 (36-46) % MCV 83.5 (80-100) fL MCH 27.7 (26-34) PG MCHC 33.2 (30-36) % RDW 13.7 (11.6-14.8) % Plt Count 354 (150-400) X10^3/uL Neut % (Auto) 76.0 H (50-75) % Lymph % (Auto) 12.0 L (25-40) % [place] % (Auto) 8.9 (3-14) % Eos % (Auto) 2.4 (2-4) % Baso % (Auto) 0.7 (0-2) % Neut # (Auto) 6600 (2492-7118) /uL Lymph # (Auto) 1000 L (9938-2384) /uL [place] # (Auto) 800 (0-900) /uL Eos # (Auto) 200 (0-450) /uL Baso # (Auto) 100 (0-100) /uL Sodium 137 (137-145) mmol/L Potassium 3.9 (3.4-5.1) mmol/L Chloride 104 (98-107) mmol/L Carbon Dioxide 25 (22-32) mmol/L BUN 7 (7-17) mg/dL Creatinine 0.57 (0.52-1.04) mg/dL Estimated GFR > 60 (>60) mL/min BUN/Creatinine Ratio 12.3 (6-22) Glucose 87 (70-100) mg/dL Calcium 9.1 (8.4-10.2) mg/dL Total Bilirubin 0.8 (0.2-1.3) mg/dL AST 25 (14-36) IU/L ALT 16 (<35) IU/L Alkaline Phosphatase 54 (38-126) U/L Total Creatine Kinase 74 (30-135) U/L Troponin I < 0.012 (0.01-0.034) ng/mL Total Protein 7.6 (6.3-8.2) g/dL Albumin 4.6 (3.5-5.0) g/dL Globulin 3.0 (1.7-4.1) g/dL Albumin/Globulin Ratio 1.5 (1.0-2.8) SARS-CoV-2 (PCR) Negative (Negative) Influenza A (RT-PCR) Flu a positive H (NEGATIVE) Influenza B (RT-PCR) Flu b negative (NEGATIVE) RSV (PCR) Positive A (Negative) Discharge Plan Departure Patient Disposition: Home Clinical Impression: Upper respiratory infection, viral, Influenza A Respiratory syncytial virus (RSV) infection Qualifiers: RSV infection type: unspecified Qualified Code(s): B33.8 - Other specified viral diseases Instructions: DI for Viral Upper Respiratory Infection -- Adult Activity Restrictions/Additional Instructions: Dear Ms. Brennen Vega, Today you were evaluated for cough and upper respiratory symptoms for the last month. Chest x-ray was negative for pneumonia and lab work was overall reassuring with negative cardiac enzymes. You tested positive for both influenza a and respiratory syncytial virus. Your symptoms are most consistent with a viral upper respiratory infection. Have prescribed benzonatate which is a cough suppressant that you can take if needed. Please rest, hydrate, take ibuprofen/Tylenol if needed for pain. Please take Ibuprofen (Motrin/Advil) or Acetaminophen (Tylenol) for pain. These are available over the counter. You may take Ibuprofen 600 mg every 8 hours with food for pain. You may also take Acetaminophen 650 mg every 4-6 hours for pain. Do not exceed 3000 mg of Tylenol a day as this can cause liver damage. Do not drink alcohol with either of these medications. Please follow up with your primary care doctor within the next 2-3 days for ER follow-up. (If you do not have a PCP you can call [phone]. ?to schedule an appointment with an [facility] Primary Care Provider) IF YOU DEVELOP ANY NEW OR WORSENING SYMPTOMS, RETURN TO THE ER! Please read the attached instructions, they highlight more specific treatments and interventions for you at home. Thank you for letting me participate in your care, Mayelin Trinidad PA-C Prescriptions: New benzonatate 200 mg capsule 200 mg PO BID-TID PRN (Reason: cough) Qty: 30 0RF Referrals: ProviderTaran [Primary Care Provider] - Stand Alone Forms: Patient Portal/API/Survey, Work Release Note ED Sign-out <Jabier Duque MD - Last Filed: 11/29/24 20:56> Cosign ED Attending Cosignature Attestation: I was immediately available in the department for consultation. This documentation has been reviewed and I agree with assessment and plan. Supervised by Jabier Duque MD
[2024-11-29] MEDS: BENZONATATE 100 MG CAPSULE 200 MG PO (12:53)
[2024-11-29] MEDS: ACETAMINOPHEN 325 MG TABLET 975 MG PO (12:53)
[2024-11-29] MEDS: ASPIRIN 81 MG CHEW TAB 324 MG PO (12:54)
[2024-11-29] MEDS: SODIUM CHLORIDE 0.9% 1,000 ML 1000 ML IV (12:56)
[2024-11-29 13:19] LABS: Add Manual Diff / Slide Review NO; Basophils Absolute Auto 100 /uL (0-100); Basophils Percent Auto 0.7 % (0-2); Eosinophils Absolute Auto 200 /uL (0-450); Eosinophils Percent Auto 2.4 % (2-4); Hematocrit 37.3 % (36-46); Hemoglobin 12.4 g/dL (12.0-16.0); Lymphocytes Absolute Auto 1000 /uL (1100-4500); Mean Corpuscular HGB Conc 33.2 % (30-36); Mean Corpuscular Hemoglobin 27.7 PG (26-34); Mean Corpuscular Volume 83.5 fL (80-100); Monocytes Absolute Auto 800 /uL (0-900); Monocytes Percent Auto 8.9 % (3-14); Neutrophils Absolute Auto 6600 /uL (1500-7000); Platelet Count 354 X10^3/uL (150-400); Red Blood Cell Count 4.46 X10^6/uL (4.0-5.2); Red Cell Distribution Width 13.7 % (11.6-14.8); White Blood Cell Count 8.7 X10^3/uL (4.5-11.0)
[2024-11-29 13:42] LABS: Alanine Aminotransferase 16 IU/L (<35); Albumin 4.6 g/dL (3.5-5.0); Albumin Globulin Ratio 1.5 (1.0-2.8); Alkaline Phosphatase 54 U/L (38-126); Aspartate Aminotransferase 25 IU/L (14-36); BUN Creatinine Ratio 12.3 (6-22); Bilirubin Total 0.8 mg/dL (0.2-1.3); Blood Urea Nitrogen 7 mg/dL (7-17); Calcium 9.1 mg/dL (8.4-10.2); Carbon Dioxide 25 mmol/L (22-32); Chloride 104 mmol/L (98-107); Creatine Kinase 74 U/L (30-135); Estimated Glomerular Filt Rate > 60 mL/min (>60); Glucose 87 mg/dL (70-100); HEMOLYSIS < 15 (0-50); Potassium 3.9 mmol/L (3.4-5.1); Sodium 137 mmol/L (137-145); Total Protein 7.6 g/dL (6.3-8.2)
[2024-11-29 13:53] LABS: Troponin I < 0.012 ng/mL (0.01-0.034)
[2024-11-29 14:55] LABS: Influenza A - CEPHEID Flu A POSITIVE (NEGATIVE); Influenza B - CEPHEID Flu B NEGATIVE (NEGATIVE); Respiratory Syncytial Virus POSITIVE (Negative)
[2024-11-29 15:02] LABS: COVID-19 CEPHEID 4-PLEX PCR Negative (Negative)
[2024-11-29 15:29] VITALS: BP 103/67; PULSE 70; RESP 16; TEMP 36.7; O2SAT 99
== END 2024-11-29 15:30 | disposition home or self-care (01) ==
PROVIDERS: Emergency Provider Physician Assistant
DX: J06.9 Acute upper respiratory infection, unspecified (principal); B97.4 Respiratory syncytial virus as the cause of diseases classified elsewhere; J10.1 Influenza due to other identified influenza virus with other respiratory manifestations; R07.9 Chest pain, unspecified; F17.200 Nicotine dependence, unspecified, uncomplicated
CPT/HCPCS: 0241U; 71046; 80053; 82550; 84484; 85025; 93005; 96360; 99284

== ENCOUNTER 2025-01-20 08:49 | Emergency (ER) | payer OTHER, SELFPAY ==
[2025-01-20 09:07] VITALS: BP 110/54; PULSE 60; RESP 20; TEMP 37; O2SAT 96; BMI 24.7
--- NOTE | 2025-01-20 10:23 | ED.RECABL ---
HPI - Recheck/Abnormal Lab/Rx General Chief Complaint: Recheck/Abnormal Lab/Rx Stated Complaint: May have pink eye Time Seen by Provider: 01/20/25 09:32 Source: patient Mode of arrival: Ambulatory History of Present Illness HPI narrative: Patient healthy 29-year-old female presenting to day with mild eye irritation. She reports that they both watery. She was here with her 2 children who are both sick with upper respiratory like symptoms 1 of them does pinkeye. She was afebrile has no other complaints no cough nausea vomiting or any other symptoms. Related Data Previous Rx's Medication Instructions Recorded benzonatate 200 mg capsule 200 mg PO BID-TID PRN cough #30 11/29/24 caps polymyxin B sulfate 10,000 2 drp EYE-BOTH Q4HRWA #10 mL 01/20/25 unit-trimethoprim 1 mg/mL eye drops Allergies Allergy/AdvReac Type Severity Reaction Status Date / Time No Known Drug Allergies Allergy Verified 08/21/22 13:20 Patient History Social History Smoking Status: Never smoker Smoking Status: Never smoker tobacco type: vaping Exam Initial Vital Signs Initial Vital Signs: Vital Signs Temperature 98.6 F 01/20/25 09:07 Pulse Rate 60 01/20/25 09:07 Respiratory Rate 20 01/20/25 09:07 Blood Pressure 110/54 L 01/20/25 09:07 Pulse Oximetry 96 01/20/25 09:07 Oxygen Delivery Method Room Air 01/20/25 09:07 GENERAL: Well-appearing, well-nourished and in no acute distress. EYES: Extraocular movements intact no erythema symptoms provided CARDIOVASCULAR: peripheral pulses in tact, cap refill <2 sec RESPIRATORY: No respiratory distress, speaks in full sentences without difficulty EXTREMITIES: Normal range of motion, no clubbing or edema. Neurovascularly intact NEUROLOGICAL: Cranial nerves II through XII grossly intact. Normal gait and speech. SKIN: Warm, dry, no petechiae, no rashes or lesions. Course Vital Signs Vital signs: Vital Signs - 8 hr 01/20/25 09:07 01/20/25 11:43 Temperature 98.6 F 97.8 F Pulse Rate 60 65 Respiratory Rate 20 Blood Pressure 110/54 L Pulse Oximetry 96 97 Oxygen Delivery Method Room Air Room Air MDM - Recheck/Abnormal Lab/Rx MDM Narrative Medical decision making narrative: Patient was minimal eye irritation no erythema no drainage. She was here with her 2 children who have pharyngitis and conjunctivitis. She was wanting drops for herself. She has no sore throat or any other symptoms. At this time supportive care only. Discharge Plan Departure Patient Disposition: Home Clinical Impression: Conjunctivitis Instructions: Conjunctivitis Activity Restrictions/Additional Instructions: *You have been diagnosed with conjunctivitis *What to do: *Continue to take medications as directed Polytrim eyedrops every 4 hours while awake *Follow up with your primary care provider in 2-3 days or call [phone] *Return to ER if you should have increasing redness drainage visual loss or any new, worsening or concerning symptoms Prescriptions: New polymyxin B sulf-trimethoprim 10,000 unit- 1 mg/mL drops 2 drp EYE-BOTH Q4HRWA Qty: 10 0RF No Action benzonatate 200 mg capsule 200 mg PO BID-TID PRN (Reason: cough) Qty: 30 0RF Referrals: ProviderTaran [Primary Care Provider] - Stand Alone Forms: Patient Portal/API/Survey
[2025-01-20 11:43] VITALS: PULSE 65; TEMP 36.6; O2SAT 97
== END 2025-01-20 11:41 | disposition home or self-care (01) ==
PROVIDERS: Emergency Provider Emergency Medicine
DX: H10.9 Unspecified conjunctivitis (principal)
CPT/HCPCS: 99281